=== PATIENT | female | born 1980 | race African-American/Black ===

== ENCOUNTER 2017-01-11 11:13 | Emergency (ER) | payer OTHER ==
[~2017-01-11] VITALS: Ht 154.9 cm; Wt 44.5 kg
[~2017-01-11 11:13] MED LIST: IBUPROFEN 600600 M1 PO; IRON325 PO; MOBIC7.5 MG PO; NAPROSYN500 MG PO; PHENERGAN 25 MG25 M1 PO
[2017-01-11] MEDS ORDERED: ULTRAM 50MG TAB50 MG PO (11:54)
[2017-01-11] MEDS ORDERED: IBUPROFEN 600600 M1 PO (11:54)
[2017-01-11 12:48] VITALS: BP 120/85
== END 2017-01-11 12:49 | disposition home or self-care (01) ==
LOC: ER 11:13
DX: M25.551 Pain in right hip (principal); D25.9 Leiomyoma of uterus, unspecified; F17.210 Nicotine dependence, cigarettes, uncomplicated; F10.99 Alcohol use, unspecified with unspecified alcohol-induced disorder; Z88.0 Allergy status to penicillin; Z87.898 Personal history of other specified conditions

== ENCOUNTER 2017-10-15 18:32 | Emergency (ER) | payer BC ==
[~2017-10-15] VITALS: Ht 154.9 cm; Wt 45.8 kg
--- NOTE | ~2017-10-15 | EKG ---
[place] [address] [facility] [place] [address] ELECTROCARDIOGRAM REPORT Name: LIGIA NICKERSONCIChandni Dumont Room #: [facility]#: [id number] Admission: 10/15/17 Attend Phys: Discharge: 10/15/17 Date of : 76 Report #: [id number] THIS REPORT FOR: //name// [facility] ED Test Date: 2017-10-15 Test Time: 19:20:01 Pat Name: MADISON NICKERSON Department: Room: Gender: F [employer]: niharika : 1980 Requested By: Aroldo Bello Order Number: [id number] MD: Abel Daniels Measurements Intervals [place] Rate: 71 P: 72 [place]: 146 QRS: 43 QRSD: 83 T: 64 QT: 370 QTc: 403 Interpretive Statements Sinus rhythm ST elev, probable normal early repol pattern Compared to ECG 10/21/2012 21:25:23 No significant changes found Electronically Signed On 10-17-2017 7:35:05 CDT by Abel Daniels [email or web address] <ELECTRONICALLY SIGNED> By: Abel Daniels MD, [facility] 10/17/17 0735 19 19 Abel Daniels MD, [facility] /EPI
[~2017-10-15 18:32] MED LIST changes: +ULTRAM 50MG TAB50 MG PO
[2017-10-15 20:06] LABS: URINE BILIRUBIN NEGATIVE (Negative); URINE BLOOD NEGATIVE (Negative); URINE CLARITY CLEAR; URINE COLOR YELLOW; URINE GLUCOSE-RANDOM* NEGATIVE (Negative); URINE KETONES NEGATIVE (Negative); URINE LEUKOCYTES-REFLEX NEGATIVE (Negative); URINE NITRITE-REFLEX NEGATIVE (Negative); URINE PROTEIN (DIPSTICK) NEGATIVE (Negative); URINE SPECIFIC GRAVITY 1.015 (1.005-1.035); URINE UROBILINOGEN 0.2 E.U./dl (0.2-1.0)
[2017-10-15 20:13] LABS: ABSOLUTE NEUTROPHILS 8.9 thou/uL (1.4-8.2); BASOPHILS 0.4 % (0.0-2.0); EOSINOPHILS 0.1 % (0.0-3.0); HEMATOCRIT 34.9 % (37.0-47.0); HEMOGLOBIN 11.2 gm/dL (12.0-15.0); MCH 22.5 pg (26.0-34.0); MCHC 32.2 g/dL (28.0-37.0); MCV 69.9 fL (80.0-100.0); MONOCYTES 10.8 % (1.0-8.0); PLATELET COUNT 377 thou/uL (150-400); POLYS 75.7 % (36.0-66.0); RBC 4.99 mil/uL (4.20-5.00); RDW 23.1 % (10.5-14.5); WBC 11.7 thou/uL (4.0-11.0)
[2017-10-15 20:21] LABS: CALCIUM 8.6 mg/dL (8.5-10.1); CREATININE 0.8 mg/dL (0.6-1.0); POTASSIUM 3.4 mmol/L (3.5-5.1)
[2017-10-15 20:26] LABS: ALBUMIN 3.8 g/dL (3.4-5.0); TOTAL BILIRUBIN 0.6 mg/dL (<0.1-1.0); TOTAL PROTEIN 8.3 g/dL (6.4-8.2)
[2017-10-15 20:28] LABS: LIPASE 132 U/L (73-393); TROPONIN-I <0.06 ng/mL (<0.06)
[2017-10-15 20:40] LABS: ANISOCYTOSIS 2+; MICROCYTES 2+
[2017-10-15 22:01] VITALS: BP 129/72
== END 2017-10-15 22:02 | disposition home or self-care (01) ==
LOC: ER 18:32
PROVIDERS: Emergency Medicine; Physician Assistant
DX: K56.7 Ileus, unspecified (principal); R42 Dizziness and giddiness; R55 Syncope and collapse; R05 Cough; F17.210 Nicotine dependence, cigarettes, uncomplicated; Z88.0 Allergy status to penicillin